=== PATIENT | female | born 1985 | race African-American/Black ===

== ENCOUNTER 2019-07-14 21:39 | Emergency (ER) | payer OTHER ==
[~2019-07-14] VITALS: Ht 154.9 cm; Wt 71.2 kg
[~2019-07-14 21:39] MED LIST: AMOX500C85 PO; BIAXIN250 MG PO; CETI10TA PO; FEXO60TA PO; FLUT0.05 NAS; HYDR25TA60 PO; PROM25TA52 PO; SB OMEPRAZOLE20 MG PO; [UNRECOGNIZED DRUG - OTHER] PO
[2019-07-14 23:29] LABS: PLATELET COUNT 357 K/uL (152-353)
[2019-07-14 23:44] LABS: POTASSIUM 3.9 mmol/L (3.6-5.2); SODIUM 137 mmol/L (136-145)
[2019-07-15 01:17] VITALS: BP 128/73; TEMP 98
== END 2019-07-15 01:17 | disposition home or self-care (01) ==
LOC: ED 21:39
PROVIDERS: Emergency Medicine
DX: R00.0 Tachycardia, unspecified (principal); T36.95XA Adverse effect of unspecified systemic antibiotic, initial encounter
CPT/HCPCS: 36415; 80053; 82550; 83735; 84484; 85027; 93005; 96365; 99284

== ENCOUNTER 2019-10-12 17:15 | Observation (INO) | payer OTHER ==
[~2019-10-12] VITALS: Ht 154.9 cm; Wt 68.1 kg
[2019-10-12 19:07] VITALS: BP 141/90; TEMP 98.4; Ht 154.9 cm; Wt 68.1 kg
[2019-10-12 19:44] VITALS: BP 141/90; TEMP 98.4
[2019-10-12 19:52] LABS: PLATELET COUNT 350 K/uL (152-353)
[2019-10-12 20:17] LABS: POTASSIUM 3.6 mmol/L (3.6-5.2); SODIUM 140 mmol/L (136-145)
[2019-10-12 20:53] LABS: PARTIAL THROMBOPLASTIN TIME 23.9 SECONDS (24.5-33.6)
[2019-10-13] VITALS: BP 126/82; TEMP 99
[2019-10-13 04:00] VITALS: BP 100/52; TEMP 98.2
[2019-10-13 08:00] VITALS: BP 119/84; TEMP 99
[2019-10-13 12:00] VITALS: BP 127/82; TEMP 98.7
[2019-10-13 16:00] VITALS: BP 118/90; TEMP 98.8
[2019-10-13 20:11] VITALS: BP 138/88; TEMP 99.1
== END 2019-10-13 20:07 | disposition home or self-care (01) ==
LOC: MED/SURG 17:15
PROVIDERS: ADMIT Family Medicine
DX: R00.2 Palpitations (principal); R07.9 Chest pain, unspecified; E86.0 Dehydration
CPT/HCPCS: 36415; 80053; 82550; 84443; 84484; 85027; 85610; 85730; 93005; 96360; 96361; 96372; 99220; G0378; G0379; J1650

== ENCOUNTER 2019-10-15 13:37 | Emergency (ER) | payer OTHER ==
[~2019-10-15] VITALS: Ht 154.9 cm; Wt 68.0 kg
[2019-10-15 15:05] LABS: POTASSIUM 3.5 mmol/L (3.6-5.2)
[2019-10-15 15:13] LABS: PLATELET COUNT 310 K/uL (152-353)
[2019-10-15 17:10] VITALS: BP 118/81; TEMP 97.6
== END 2019-10-15 17:10 | disposition home or self-care (01) ==
LOC: ED 13:37
PROVIDERS: Student in an Organized Health Care Education/Training Program
DX: R00.2 Palpitations (principal); R10.13 Epigastric pain
CPT/HCPCS: 36415; 80053; 81000; 81025; 83690; 83735; 84484; 85027; 93005; 96374; 99284

== ENCOUNTER 2020-01-22 07:44 | Outpatient (CLI) | payer OTHER | END 2020-01-22 20:10 | disposition home or self-care (01) | LOC: LAB 07:44 | DX: R19.7 Diarrhea, unspecified (principal) | CPT/HCPCS: 83630; 87015; 87045; 87324; 87328; 87329; 87449; 87899 ==

== ENCOUNTER 2020-02-03 13:52 | Emergency (ER) | payer OTHER ==
[~2020-02-03] VITALS: Ht 154.9 cm; Wt 68.9 kg
[2020-02-03 14:00] VITALS: TEMP 98.3
[2020-02-03 14:22] LABS: PLATELET COUNT 316 K/uL (152-353)
[2020-02-03 14:30] LABS: POTASSIUM 3.4 mmol/L (3.6-5.2); SODIUM 137 mmol/L (136-145)
[2020-02-03 14:50] LABS: PARTIAL THROMBOPLASTIN TIME 22.7 SECONDS (24.5-33.6)
[2020-02-03 18:30] VITALS: BP 128/87
== END 2020-02-03 18:40 | disposition home or self-care (01) ==
LOC: ED 13:52
PROVIDERS: Emergency Medicine
DX: R07.89 Other chest pain (principal); M94.0 Chondrocostal junction syndrome [Tietze]
CPT/HCPCS: 80053; 81000; 81025; 82550; 84484; 85027; 85379; 85610; 85730; 93005; 96374; 99284; J1885; Q9963

== ENCOUNTER 2020-06-18 12:02 | Outpatient (CLI) | payer OTHER | END 2020-06-18 20:35 | disposition home or self-care (01) | LOC: RAD 12:02 | DX: M54.2 Cervicalgia (principal) ==

== ENCOUNTER 2020-06-22 17:06 | Emergency (ER) | payer OTHER ==
[~2020-06-22] VITALS: Ht 154.9 cm; Wt 68.0 kg
[2020-06-22] MEDS ORDERED: LISI5TAB10 PO (17:25)
[2020-06-22 18:03] LABS: PLATELET COUNT 302 K/uL (152-353)
[2020-06-22 18:16] LABS: POTASSIUM 3.8 mmol/L (3.6-5.2)
[2020-06-22 21:27] VITALS: BP 117/63; TEMP 98.9
== END 2020-06-22 21:28 | disposition home or self-care (01) ==
LOC: ED 17:06
PROVIDERS: Emergency Medicine
DX: R51 Headache (principal); H92.03 Otalgia, bilateral
CPT/HCPCS: 80053; 85027; 93005; 96374; 96376; 99284; J2175

== ENCOUNTER 2020-08-16 08:54 | Outpatient (CLI) | payer OTHER ==
[~2020-08-16 08:54] MED LIST changes: +LISI5TAB10 PO
== END 2020-08-17 00:23 | disposition home or self-care (01) ==
LOC: RESP 08:54
DX: R00.2 Palpitations (principal)

== ENCOUNTER 2020-09-13 09:18 | Outpatient (CLI) | payer OTHER | END 2020-09-13 23:30 | disposition home or self-care (01) | LOC: US 09:18 | DX: R10.32 Left lower quadrant pain (principal) ==

== ENCOUNTER 2020-09-15 18:07 | Emergency (ER) | payer OTHER ==
[~2020-09-15] VITALS: Ht 154.9 cm; Wt 71.7 kg
[2020-09-15 19:12] LABS: PLATELET COUNT 309 K/uL (152-353)
[2020-09-15 19:25] LABS: POTASSIUM 3.4 mmol/L (3.6-5.2)
[2020-09-15 22:39] VITALS: BP 122/64; TEMP 98.8
== END 2020-09-15 22:40 | disposition home or self-care (01) ==
LOC: ED 18:07
PROVIDERS: Emergency Medicine Emergency Medical Services
DX: R10.32 Left lower quadrant pain (principal)
CPT/HCPCS: 80053; 81000; 81025; 83690; 85027; 96360; 96375; 99284; J1885; J2405; Q9963

== ENCOUNTER 2021-01-13 11:24 | Outpatient (CLI) | payer OTHER | END 2021-01-13 21:32 | disposition home or self-care (01) | LOC: RAD 11:24 | PROVIDERS: ATTEND Family Medicine | DX: M25.512 Pain in left shoulder (principal) ==

== ENCOUNTER 2021-05-25 11:58 | Outpatient (CLI) | payer OTHER | END 2021-05-25 19:10 | disposition home or self-care (01) | LOC: RAD 11:58 | PROVIDERS: ATTEND Family Medicine | DX: R10.9 Unspecified abdominal pain (principal); M54.5 Low back pain ==

== ENCOUNTER 2021-07-10 12:53 | Outpatient (CLI) | payer OTHER | END 2021-07-10 21:17 | disposition home or self-care (01) | LOC: MAMMO 12:53 | PROVIDERS: ATTEND Family Medicine | DX: N64.9 Disorder of breast, unspecified (principal); N64.4 Mastodynia; Z87.898 Personal history of other specified conditions | CPT/HCPCS: G0279 ==

== ENCOUNTER 2021-07-25 15:30 | Outpatient (CLI) | payer OTHER | END 2021-07-25 19:06 | disposition home or self-care (01) | LOC: RAD 15:30 | PROVIDERS: ATTEND Family Medicine | DX: M54.2 Cervicalgia (principal); H92.09 Otalgia, unspecified ear ==

== ENCOUNTER 2021-09-04 17:52 | Emergency (ER) | payer OTHER ==
[~2021-09-04] VITALS: Ht 154.9 cm; Wt 71.7 kg
[2021-09-04 18:33] LABS: PLATELET COUNT 358 K/uL (152-353)
[2021-09-04 18:43] LABS: POTASSIUM 3.5 mmol/L (3.6-5.2)
[2021-09-05 01:37] VITALS: BP 118/73; TEMP 99.2
== END 2021-09-05 01:37 | disposition home or self-care (01) ==
LOC: ED 17:52
PROVIDERS: Hospitalist
DX: N83.291 Other ovarian cyst, right side (principal); D25.9 Leiomyoma of uterus, unspecified; K29.60 Other gastritis without bleeding; Z20.822 Contact with and (suspected) exposure to COVID-19
CPT/HCPCS: 36415; 80053; 81000; 81025; 83690; 85027; 87635; 96360; 96365; 96375; 99284; J0696; J1885; J2405; Q9963; U0003

== ENCOUNTER 2021-12-05 17:12 | Emergency (ER) | payer OTHER ==
[~2021-12-05] VITALS: Ht 154.9 cm; Wt 71.7 kg
[2021-12-05 20:40] VITALS: BP 128/80; TEMP 97.1
== END 2021-12-05 20:40 | disposition home or self-care (01) ==
LOC: ED 17:12
DX: T78.49XA Other allergy, initial encounter (principal); X58.XXXA Exposure to other specified factors, initial encounter; Y92.89 Other specified places as the place of occurrence of the external cause
CPT/HCPCS: 96374; 96375; 99284; J1200; J2930

== ENCOUNTER 2023-02-12 09:33 | Outpatient (CLI) | payer OTHER | END 2023-02-12 22:07 | disposition home or self-care (01) | LOC: US 09:33 | PROVIDERS: ATTEND Nurse Practitioner Family | DX: M54.2 Cervicalgia (principal) ==